=== PATIENT | male | born 1990 | race Two or more races ===

== ENCOUNTER 2022-10-01 06:49 | Emergency (ER) | payer OTHER ==
[~2022-10-01] VITALS: Ht 157.5 cm; Wt 86.0 kg
[2022-10-01 07:48] VITALS: BP 125/77
[2022-10-01] MEDS ORDERED: IBUP600T28 PO (08:34)
[2022-10-01] MEDS ORDERED: IBUPROFEN 600 MG TAB PO ONE (08:45)
== END 2022-10-01 09:27 | disposition home or self-care (01) ==
LOC: ER 06:49
DX: S39.012A Strain of muscle, fascia and tendon of lower back, initial encounter (principal); S46.911A Strain of unspecified muscle, fascia and tendon at shoulder and upper arm level, right arm, initial encounter; V89.2XXA Person injured in unspecified motor-vehicle accident, traffic, initial encounter; Y93.89 Activity, other specified; Y92.411 Interstate highway as the place of occurrence of the external cause; Y99.8 Other external cause status
CPT/HCPCS: 72100; 73030